=== PATIENT | female | born 1965 ===

== ENCOUNTER 2018-02-01 12:28 | Emergency (ER) | payer MEDICAID ==
[2018-02-01 12:53] VITALS: BP 137/88
[2018-02-01] MEDS ORDERED: MOTRIN PO ONE (14:17)
--- NOTE | 2018-02-01 14:21 | Emergency Department Report ---
ED Upper Extremity Inj HPI - General Chief Complaint: Extremity Injury, Upper Stated Complaint: (R) SHOULDER PAIN Source: patient Mode of arrival: Ambulatory Limitations: No Limitations - History of Present Illness MD Complaint: Injury to:: right, shoulder -: Gradual, week(s) (4) Other Extremity Injury: Shoulder: Right Other Injuries: none Handedness: left Place: home Improves With: none Worsens With: none Associated Symptoms: denies other symptoms (NO FALL NO TRAUMA NO INJURY. A/C PAIN) - Related Data Previous Rx's Medication Instructions Recorded Last Taken Type Naproxen Sodium [Aleve TAB] 220 mg PO Q8H PRN #12 tablet 02/01/18 Unknown Rx Allergies Allergy/AdvReac Type Severity Reaction Status Date / Time No Known Allergies Allergy Unverified 02/01/18 12:51 ED Review of Systems ROS: Stated complaint: (R) SHOULDER PAIN Other details as noted in HPI Comment: All other systems reviewed and negative Constitutional: no symptoms reported Eyes: denies: eye pain ENT: denies: ear pain Respiratory: no symptoms reported Cardiovascular: denies: chest pain, palpitations Endocrine: denies: excessive sweating, flushing Gastrointestinal: denies: abdominal pain, nausea, vomiting Genitourinary: denies: urgency, dysuria Musculoskeletal: arthralgia (SHOULDER PAIN - RIGHT). denies: back pain Skin: denies: rash, lesions Neurological: denies: headache, weakness Psychiatric: denies: anxiety, depression Hematological/Lymphatic: denies: easy bleeding ED Past Medical Hx - Past Medical History Previous Medical History?: Yes Additional medical history: OSTEOPOROSIS. AND OSTEOPENIA - Surgical History Past Surgical History?: No Additional Surgical History: , partial hysterectomy - Social History Smoking Status: Current Every Day Smoker Substance Use Type: None - Medications Home Medications: Home Medications Medication Instructions Recorded Confirmed Last Taken Type Naproxen Sodium [Aleve TAB] 220 mg PO Q8H PRN #12 tablet 02/01/18 Unknown Rx ED Physical Exam - General Limitations: No Limitations General appearance: alert - Head Head exam: Present: atraumatic - Eye Eye exam: Present: normal appearance - ENT ENT exam: Present: mucous membranes moist - Neck Neck exam: Present: normal inspection - Respiratory Respiratory exam: Present: normal lung sounds bilaterally - Cardiovascular Cardiovascular Exam: Present: regular rate - GI/Abdominal GI/Abdominal exam: Present: soft - Rectal Rectal exam: Present: deferred - Extremities Exam Extremities exam: Present: normal inspection, full ROM, normal capillary refill. Absent: tenderness, pedal edema, joint swelling, calf tenderness - Expanded Upper Extremity Exam Right General: Present: other, normal inspection Shoulder Exam: Present: normal inspection, full ROM. Absent: tenderness, swelling, abrasion, laceration, ecchymosis, deformity, crepidus, dislocation, erythema, tenderness over AC joint Upper Arm exam: Present: normal inspection Elbow exam: Present: normal inspection Forearm Wrist exam: Present: normal inspection Hand Wrist exam: Present: normal inspection Vascular: Present: normal capillary refill, radial pulse, ulnar pulse - Back Exam Back exam: Present: normal inspection, full ROM. Absent: tenderness, CVA tenderness (R), CVA tenderness (L) - Neurological Exam Neurological exam: Present: alert, oriented X3, CN II-XII intact, normal gait - Psychiatric Psychiatric exam: Present: normal affect, normal mood - Skin Skin exam: Present: warm, dry, intact ED Course Vital Signs 02/01/18 12:51 Temperature 98.6 F Pulse Rate 86 Respiratory 18 Rate Blood Pressure 137/88 O2 Sat by Pulse 99 Oximetry ED Medical Decision Making - Differential Diagnosis AC PAIN - SHOULDER PAIN W NO TRAUMA Critical care attestation.: If time is entered above; I have spent that time in minutes in the direct care of this critically ill patient, excluding procedure time. ED Disposition Clinical Impression: Arthritis Disposition: DC-01 TO HOME OR SELFCARE Is pt being admited?: No Does the pt Need Aspirin: No Condition: Stable Instructions: Osteoarthritis (ED) Additional Instructions: FOLLOW UP WITH PCP IN 1 WEEK TO BE SURE YOU ARE FEELING BETTER CONTINUE MEDS FOR OSTEO. DIET TOLERATED DRINK MILK ACTIVITY TOLERATED Referrals: PRIMARY CARE, [Primary Care Provider] - 3-5 Days Time of Disposition: 14:18
== END 2018-02-01 14:40 | disposition home or self-care (01) ==
LOC: ED 12:28
DX: M19.011 Primary osteoarthritis, right shoulder (principal); F17.200 Nicotine dependence, unspecified, uncomplicated; Z90.711 Acquired absence of uterus with remaining cervical stump
CPT/HCPCS: 99282